=== PATIENT | male | born 1980 | race Asian ===

== ENCOUNTER 2023-04-23 23:19 | Emergency (ER) | payer SELFPAY ==
[2023-04-23 23:26] VITALS: BP 129/87; PULSE 94; RESP 18; TEMP 99.1; BMI 24.9
[2023-04-24] MEDS ORDERED: LIDOCAINE VISCOUS 2% ORAL/TOP 15 ML UNIT-DOSE CUP ONE (00:51)
== END 2023-04-24 02:15 | disposition home or self-care (01) ==
LOC: JER 23:19
DX: T17.208A Unspecified foreign body in pharynx causing other injury, initial encounter (principal)
CPT/HCPCS: 70490-TC; 99284-25